=== PATIENT | female | born 1965 | race Caucasian/White ===

== ENCOUNTER → 2019-06-17 | Outpatient (CLI) | payer BC | LOC: RAD 12:14 | DX: J45.909 Unspecified asthma, uncomplicated (principal) ==

== ENCOUNTER 2021-07-14 22:51 | Observation (INO) | payer BC ==
[~2021-07-14] VITALS: Ht 165.1 cm; Wt 68.0 kg
--- NOTE | ~2021-07-14 | EMS ---
[address] [address] EMS Patient Care Report Name: TONIO VELAZQUEZ Room #: 170-5 ADM IN M.R.#: [id number] Admission: 07/15/21 Attend Phys: Aurelio Del Valle MD Discharge: Date of : 63 Report #: [id number] THIS REPORT FOR: //name// Report Transmitted: 07/15/2021 12:55 EMS Care Summary [place], [place]/[facility] Incident [id number] @ 07/14/2021 21:58 Incident Location [address] [place] [address] Patient TONIO VELAZQUEZ Female, 56 Years 1965 Patient Address [address] [place] [address] Patient History Asthma,Gastro-Esophageal Reflux Disease (GERD), Patient Allergies No known allergies, Patient Medications Omeprazole, Advair, Chief Complaint vertigo Disposition Transported No Lights/[place] Dispatch Reason Sick Person Transported To [facility] Narrative M36 dispatched on a sick person. M36 arrived to find family welcoming EMS to house. PT stated dizziness and weakness when she stood up as chief complaint. PT stated symptoms stared at 1330 this afternoon. PT stated she was vaccinated for COVID including a booster shot three weeks ago. PT stated additional [address] [address] EMS Patient Care Report Name: TONIO VELAZQUEZ Room #: 170-5 ADM IN Julianna#: [id number] Admission: 07/15/21 Attend Phys: Aurelio Del Valle MD Discharge: Date of : 63 Report #: [id number] complaints of N/V/D, chills with no fever and upper abdominal pain. PT stated "I can't even keep gatorade down right now." PT assisted to stand and pivot to stairchair. PT secured with seatbelts and moved outside by EMS. PT assisted to stand and pivot to stretcher. PT secured with seatbelts and blanket. PT vitals monitored during transport. PT report given. PT assisted to stand and pivot to wheelchair in triage area. PT care and belongings transferred to ER staff at [facility] after delay for ED overcrowding. M36 placed back in service. Initial Vitals @22:24P: 80,R: 16,BP: 160/86,Pain: 4/10,GCS: 15,CO: 0,SpO2: 100,Revised Trauma: 12, @22:35P: 80,R: 16,BP: 156/76,Pain: 4/10,GCS: 15,SpO2: 100,Revised Trauma: 12, @22:15P: 82,R: 18,BP: 160/94,Pain: 4/10,GCS: 15,CO: 2,SpO2: 100,Revised Trauma: 12, Assessments @22:13MENTAL:Place Oriented,Person Oriented,Event Oriented,Time Oriented,SKIN:Pale,HEENT:LUNG SOUNDS:Right Upper: Tenderness,Left Upper: Tenderness,General: Vomiting,General: Diarrhea,General: Nausea,ABDOMEN:Right Upper: Tenderness,Left Upper: Tenderness,General: Vomiting,General: Diarrhea,General: Nausea,PELVIS//GI:EXTREMITIES:PULSE:Radial: 2+ Normal,NEURO:Abnormal Gait,Other, Impression Generalized Weakness Procedures @22:13 ALS Assessment Response: UnchangedSucceeded @22:28 Zofran - 0.4 Milligrams (mg) - Oral Response: Unchanged Timeline :57,Call Received :,Dispatch Notified :58,Dispatched 22:00,En Route 22:11,On Scene 22:12,At Patient 22:13,ALS Assessment,Response: UnchangedSucceeded, 22:15,BP: 160/94 M,PULSE: 82,RR: 18 R,SPO2: 100 Ox,ETCO2: ,BG: ,PAIN: 4,GCS: 15, 22:24,BP: 160/86 M,PULSE: 80,RR: 16 R,SPO2: 100 Ox,ETCO2: ,BG: ,PAIN: 4,GCS: 15, 22:27,Depart Scene 22:28,Zofran - 0.4 Milligrams (mg) - Oral,Response: Unchanged [facility] [address] [place] [address] EMS Patient Care Report Name: TONIO VELAZQUEZ Room #: 170-5 ADM IN M.R.#: [id number] Admission: 07/15/21 Attend Phys: Aurelio Del Valle MD Discharge: Date of : 63 Report #: [id number] 22:35,BP: 156/76 M,PULSE: 80,RR: 16 R,SPO2: 100 Ox,ETCO2: ,BG: ,PAIN: 4,GCS: 15, 22:41,At Destination 23:05,Call Closed Disclaimer v1.1 Copyright 2020 [employer] This EMS Care Summary contains data elements from the applicable legal record (which may be displayed differently). It is designed to provide pertinent information for the following purposes: continuity of care, clinical quality, and state data reporting. The complete legal record is available to ED staff and administrators of the receiving hospital in [employer] Patient Tracker. All data is provided "as is."
--- NOTE | ~2021-07-14 | EMS ---
[facility] [address] [place] [address] EMS Patient Care Report Name: TONIO VELAZQUEZ Room #: PRE MRadha#: [id number] Admission: Attend Phys: Discharge: Date of : 63 Report #: [id number] THIS REPORT FOR: //name// Report Transmitted: 07/14/2021 23:28 EMS Care Summary [place], [place]/[facility] Incident [id number] @ 07/14/2021 21:58 Incident Location [address] [place] [address] Patient TONIO VELAZQUEZ Female, 56 Years 1965 Patient Address [address] [place] [address] Patient History Asthma,Gastro-Esophageal Reflux Disease (GERD), Patient Allergies No known allergies, Patient Medications Omeprazole, Advair, Chief Complaint vertigo Disposition Transported No Lights/[place] Dispatch Reason Sick Person Transported To [facility] Narrative M36 dispatched on a sick person. M36 arrived to find family welcoming EMS to house. PT stated dizziness and weakness when she stood up as chief complaint. PT stated symptoms stared at 1330 this afternoon. PT stated she was vaccinated for COVID including a booster shot three weeks ago. PT stated additional [facility] [address] [place] [address] EMS Patient Care Report Name: TONIO VELAZQUEZ Room #: PRE Janeth.#: [id number] Admission: Attend Phys: Discharge: Date of : 63 Report #: [id number] complaints of N/V/D, chills with no fever and upper abdominal pain. PT stated "I can't even keep gatorade down right now." PT assisted to stand and pivot to stairchair. PT secured with seatbelts and moved outside by EMS. PT assisted to stand and pivot to stretcher. PT secured with seatbelts and blanket. PT vitals monitored during transport. PT report given. PT assisted to stand and pivot to wheelchair in triage area. PT care and belongings transferred to ER staff at [facility] after delay for ED overcrowding. M36 placed back in service. Initial Vitals @22:24P: 80,R: 16,BP: 160/86,Pain: 4/10,GCS: 15,CO: 0,SpO2: 100,Revised Trauma: 12, @22:35P: 80,R: 16,BP: 156/76,Pain: 4/10,GCS: 15,SpO2: 100,Revised Trauma: 12, @22:15P: 82,R: 18,BP: 160/94,Pain: 4/10,GCS: 15,CO: 2,SpO2: 100,Revised Trauma: 12, Assessments @22:13MENTAL:Time Oriented,Event Oriented,Person Oriented,Place Oriented,SKIN:Pale,HEENT:LUNG SOUNDS:General: Nausea,General: Diarrhea,General: Vomiting,Left Upper: Tenderness,Right Upper: Tenderness,ABDOMEN:General: Nausea,General: Diarrhea,General: Vomiting,Left Upper: Tenderness,Right Upper: Tenderness,PELVIS//GI:EXTREMITIES:PULSE:Radial: 2+ Normal,NEURO:Abnormal Gait,Other, Impression Generalized Weakness Procedures @22:13 ALS Assessment Response: UnchangedSucceeded @22:28 Zofran - 0.4 Milligrams (mg) - Oral Response: Unchanged Timeline 21:57,Call Received 21:57,Dispatch Notified 21:58,Dispatched 22:00,En Route 22:11,On Scene 22:12,At Patient 22:13,ALS Assessment,Response: UnchangedSucceeded, 22:15,BP: 160/94 M,PULSE: 82,RR: 18 R,SPO2: 100 Ox,ETCO2: ,BG: ,PAIN: 4,GCS: 15, 22:24,BP: 160/86 M,PULSE: 80,RR: 16 R,SPO2: 100 Ox,ETCO2: ,BG: ,PAIN: 4,GCS: 15, 22:27,Depart Scene 22:28,Zofran - 0.4 Milligrams (mg) - Oral,Response: Unchanged [address] [address] EMS Patient Care Report Name: TONIO VELAZQUEZ Room #: PRE M.R.#: [id number] Admission: Attend Phys: Discharge: Date of : 63 Report #: [id number] 22:35,BP: 156/76 M,PULSE: 80,RR: 16 R,SPO2: 100 Ox,ETCO2: ,BG: ,PAIN: 4,GCS: 15, 22:41,At Destination 23:05,Call Closed Disclaimer v1.1 Copyright 2020 [employer] This EMS Care Summary contains data elements from the applicable legal record (which may be displayed differently). It is designed to provide pertinent information for the following purposes: continuity of care, clinical quality, and state data reporting. The complete legal record is available to ED staff and administrators of the receiving hospital in [employer]'s Patient Tracker. All data is provided "as is."
[2021-07-14 23:14] VITALS: BP 144/80
[2021-07-14] MEDS ORDERED: DIVIGEL1 GM TOP (23:25)
[2021-07-14] MEDS ORDERED: WIXELA 250-501 EACH INH (23:26)
[2021-07-14] MEDS ORDERED: PROGESTERONE100 MG PO (23:26)
[2021-07-14] MEDS ORDERED: SINGULAIR 10 MG10 M1 PO (23:26)
[2021-07-14] MEDS ORDERED: TRIAMTERENE-HC1 EAC2 PO (23:27)
[2021-07-14] MEDS ORDERED: PROAIR HFA8.5 GM INH (23:27)
[2021-07-14] MEDS ORDERED: OMEPRAZOLE40 MG PO (23:28)
[2021-07-14] MEDS ORDERED: ACID CONTROLLER20 MG PO (23:28)
[2021-07-15 00:24] LABS: ABSOLUTE NEUTROPHILS 7.6 thou/uL (1.4-8.2); BASOPHILS 0.2 % (0.0-2.0); EOSINOPHILS 0.1 % (0.0-3.0); HEMATOCRIT 41.5 % (37.0-47.0); HEMOGLOBIN 14.2 gm/dL (12.0-15.0); LYMPHOCYTES 6.3 % (24.0-44.0); MCH 31.5 pg (26.0-34.0); MCHC 34.2 g/dL (28.0-37.0); MONOCYTES 2.2 % (1.0-8.0); PLATELET COUNT 323 thou/uL (150-400); POLYS 91.2 % (36.0-66.0); RBC 4.52 mil/uL (4.20-5.00); RDW 13.8 % (10.5-14.5); WBC 8.4 thou/uL (4.0-11.0)
[2021-07-15 00:29] LABS: CALCIUM 9.2 mg/dL (8.5-10.1); CREATININE 0.7 mg/dL (0.6-1.0); POTASSIUM 3.7 mmol/L (3.5-5.1)
[2021-07-15 00:35] LABS: ALBUMIN 3.9 g/dL (3.4-5.0); TOTAL BILIRUBIN 0.7 mg/dL (0.2-1.0); TOTAL PROTEIN 7.1 g/dL (6.4-8.2)
[2021-07-15] MEDS ORDERED: MECLIZINE HCL25 M1 PO (03:10)
[2021-07-15] MEDS ORDERED: ZOFRAN ODT4 MG PO (03:10)
[2021-07-15] MEDS ORDERED: ACETAMINOPHEN325 M1 PO (11:20)
[2021-07-15] MEDS ORDERED: MECLIZINE HCL25 MG PO (11:20)
[2021-07-15 12:24] VITALS: BP 135/73
--- NOTE | 2021-07-15 16:08 | NUR ---
INITIAL ASSESSMENT: Received consult. SW reviewed chart and spoke with attending physician. Pt was admitted from home due to vertigo. Neurology consulted. Pt with orders to discharge home from the ER. Pt was discharged prior to PT eval and SW consult. Per chart, pt lives at home with family. No discharge needs identified. SW is available to assist should needs arise.
== END 2021-07-15 11:16 | disposition home or self-care (01) ==
LOC: ER 22:51 → EROBS 07-15 04:51
PROVIDERS: Emergency Medicine; ADMIT Internal Medicine; ATTEND Internal Medicine
DX: R42 Dizziness and giddiness (principal); Z20.822 Contact with and (suspected) exposure to COVID-19; J45.909 Unspecified asthma, uncomplicated; I10 Essential (primary) hypertension; K21.9 Gastro-esophageal reflux disease without esophagitis; Z87.891 Personal history of nicotine dependence; Z79.899 Other long term (current) drug therapy